=== PATIENT | male | born 1985 | race Caucasian/White ===

== ENCOUNTER 2018-02-25 12:30 | Emergency (ER) | payer BC ==
[2018-02-25] MEDS ORDERED: Famotidine 20 MG TAB ONE (12:40)
[2018-02-25] MEDS ORDERED: Dexamethasone 4 MG TAB ONE (12:40)
[2018-02-25] MEDS ORDERED: diphenhydrAMINE 50 MG/ML VIAL ONE (14:03)
== END 2018-02-25 16:00 | disposition home or self-care (01) ==
LOC: MADERS 12:30
DX: T63.441A Toxic effect of venom of bees, accidental (unintentional), initial encounter (principal)
CPT/HCPCS: 96374; J1200; J8540